=== PATIENT | female | born 1990 | race Caucasian/White ===

== ENCOUNTER 2017-01-10 08:57 | Emergency (ER) | payer MEDICAID ==
[~2017-01-10] VITALS: Ht 170.2 cm; Wt 112.0 kg
[2017-01-10 09:01] VITALS: Ht 170.2 cm; Wt 112.0 kg
[2017-01-10] MEDS ORDERED: AMO500 PO (09:47)
[2017-01-10] MEDS ORDERED: IBUP400T22 PO (09:47)
[2017-01-10 09:59] VITALS: BP 155/81; PULSE 77; RESP 16
--- NOTE | 2017-01-10 11:05 | ERD ---
ER Documentation Chief Complaint Date/Time DATE: 01/10/17 TIME: 11:01 Chief Complaint pt bib family with c/o right sided ear pain , feels pounding HPI This is a 26-year-old female presenting to emergency department for right earache 3 days. Patient states pain is throbbing in nature. Patient rates pain 5/10. No drainage from ear. No swelling or surrounding erythema. Patient denies fever chills. No vomiting. No headache or body aches. No sick contacts. ROS All systems reviewed and are negative except as per history of present illness. Medications Home Meds Active Scripts Ibuprofen* (Motrin*) 400 Mg Tab, 400 MG PO Q6, #15 TAB Prov:TRUDI KEARNS NP 01/10/17 Amoxicillin* (Amoxicillin*) 500 Mg Cap, 500 MG PO TID for 10 Days, CAP Prov:TRUDI KEARNS NP 01/10/17 Allergies Allergies: Coded Allergies: No Known Drug Allergies (Verified Allergy, 03/25/12) Uncoded Allergies: NONE (Allergy, 12/19/11) PMhx/Soc Medical and Surgical Hx: pt denies Medical Hx, pt denies Surgical Hx History of Surgery: No Anesthesia Reaction: No Hx Neurological Disorder: No Hx Respiratory Disorders: No Hx Cardiac Disorders: No Hx Psychiatric Problems: No Hx Miscellaneous Medical Probl: No Hx Alcohol Use: No Hx Substance Use: No Hx Tobacco Use: No Smoking Status: Never smoker Physical Exam Vitals Vital Signs Date Time Temp Pulse Resp B/P Pulse Ox O2 Delivery O2 Flow Rate FiO2 01/10/17 09:59 77 16 155/81 99 Room Air 01/10/17 09:01 99.0 101 16 164/89 99 Physical Exam Const: alert, non-ill appearing Head: Atraumatic Eyes: Normal Conjunctiva ENT: Normal External Ears, Nose and Mouth. Erythema to right ear canal, normal TM. Left ear canal and TM normal. No erythema or exudate posterior pharynx. Neck: Full range of motion..~ No meningismus. Resp: Clear to auscultation bilaterally. No wheezing, rhonchi or crackles. No labored breathing or stridor. Cardio: Regular rate and rhythm, no murmurs Abd: Soft, non tender, non distended. Normal bowel sounds Skin: No petechiae or rashes Back: No midline or flank tenderness Ext: No cyanosis, or edema Neur: Awake and alert Psych: Normal Mood and Affect Procedures/MDM ED COURSE: The patient was stable throughout ED course. I kept the patient and/or family informed of laboratory and diagnostic imaging results throughout the ED course. Laboratory Imaging MDM: ED COURSE: The patient was stable throughout ED course. I kept the patient and/or family informed of laboratory and diagnostic imaging results throughout the ED course. MDM: 26-year-old female presents emergency department for right earache 3 days. No fevers or chills at home. Temp of 99.0F upon arrival to ED. No headache or vomiting. No surrounding erythema or swelling to right ear. No lymphadenopathy. No sore throat or difficulty swallowing. Remains hemodynamically stable. No signs or symptoms of respiratory distress. Low suspicion for mastoiditis. Patient likely has acute otitis media. Patient is appropriate for outpatient management will be given prescription for amoxicillin and ibuprofen. Instructed patient to follow-up with primary care provider in the next 24-48 hours for reassessment. Return to ED for any high fever, chest pain, difficulty breathing, shortness breath, wheezing, vomiting, diarrhea, abdominal pain or any new or worsening symptoms. Patient verbalizes understanding. All questions answered at discharge. Departure Diagnosis: Primary Impression: Otitis media Otitis media type: unspecified Laterality: right Chronicity: unspecified Qualified Code: H66.91 - Right otitis media, unspecified chronicity, unspecified otitis media type Condition: Stable Patient Instructions: Otitis Media, Abx Tx (Adult) Referrals: [facility] YOU HAVE RECEIVED A MEDICAL SCREENING EXAM AND THE RESULTS INDICATE THAT YOU DO NOT HAVE A CONDITION THAT REQUIRES URGENT TREATMENT IN THE EMERGENCY DEPARTMENT. FURTHER EVALUATION AND TREATMENT OF YOUR CONDITION CAN WAIT UNTIL YOU ARE SEEN IN YOUR DOCTORS OFFICE WITHIN THE NEXT 1-2 DAYS. IT IS YOUR RESPONSIBILITY TO MAKE AN APPOINTMENT FOR FOLOW-UP CARE. IF YOU HAVE A PRIMARY DOCTOR --you should call your primary doctor and schedule an appointment IF YOU DO NOT HAVE A PRIMARY DOCTOR YOU CAN CALL OUR PHYSICIAN REFERRAL HOTLINE AT IF YOU CAN NOT AFFORD TO SEE A PHYSICIAN YOU CAN CHOSE FROM THE FOLLOWING [facility]ICS [facility] [address] [facility]. [facility] [address] [facility]. [facility] [address] [facility]. [facility] [address] [facility]. [facility] [address] [facility]. [facility]. [address] [facility]. [facility] YOU HAVE RECEIVED A MEDICAL SCREENING EXAM AND THE RESULTS INDICATE THAT YOU DO NOT HAVE A CONDITION THAT REQUIRES URGENT TREATMENT IN THE EMERGENCY DEPARTMENT. FURTHER EVALUATION AND TREATMENT OF YOUR CONDITION CAN WAIT UNTIL YOU ARE SEEN IN YOUR DOCTORS OFFICE WITHIN THE NEXT 1-2 DAYS. IT IS YOUR RESPONSIBILITY TO MAKE AN APPOINTMENT FOR FOLOW-UP CARE. IF YOU HAVE A PRIMARY DOCTOR --you should call your primary doctor and schedule and appointment IF YOU DO NOT HAVE A PRIMARY DOCTOR YOU CAN CALL OUR PHYSICIAN REFERRAL HOTLINE AT . IF YOU CAN NOT AFFORD TO SEE A PHYSICIAN YOU CAN CHOSE FROM THE FOLLOWING [facility] INSTITUTIONS: [facility] [address] [place] [address] [facility] [address] [place], [place] [id number] [place] [address] [address] [place] [address] Additional Instructions: Call your primary care doctor TOMORROW for an appointment during the next 2-3 days.See the doctor sooner or return here if your condition worsens before your appointment time. Return to ED for any high fever, chest pain, difficulty breathing, shortness breath, wheezing, vomiting, diarrhea, abdominal pain or any new or worsening symptoms. TRUDI KEARNS NP Jan 10, 2017 11:05
== END 2017-01-10 10:00 | disposition home or self-care (01) ==
LOC: FTE 08:57
DX: H66.91 Otitis media, unspecified, right ear (principal)
CPT/HCPCS: 99283